=== PATIENT | male | born 1970 | race American Indian/Alaskan Native ===

== ENCOUNTER 2018-10-15 10:15 | Outpatient (CLI) | payer BC ==
--- NOTE | 2018-10-15 11:16 | Ultrasound Report ---
SCROTAL ULTRASOUND WITH DOPPLER HISTORY: N50.8) SCROTAL PAIN intermittent pain in both testicles for about one month. COMPARISON: None. TECHNIQUE: Grayscale, color and spectral Doppler images were obtained of the scrotum. FINDINGS: RIGHT: Right testicle: No significant abnormality. No mass. Right testicular size: 4.9 x 2.8 x 3.2 cm. Right epididymis: No significant abnormality. LEFT: Left testicle: No significant abnormality. No mass. Left testicular size: 4.4 x 2.2 x 3.4 cm. Left epididymis: No significant abnormality. Additional findings: No significant hydrocele or varicocele. Spectral Doppler waveforms demonstrate a rterial flow to both testicles. IMPRESSION: 1. No significant abnormality. Signer Name: Daljit Don Jr, MD Signed: 10/15/2018 11:12 AM Workstation Name: [id number]
== END 2018-10-15 10:16 | disposition home or self-care (01) ==
LOC: US 10:15
PROVIDERS: ATTEND Urology
DX: N50.89 Other specified disorders of the male genital organs (principal)
CPT/HCPCS: 93975